=== PATIENT | male | born 1945 | race Asian ===

== ENCOUNTER 2018-12-26 16:39 | Emergency (ER) | payer MEDICARE ==
[~2018-12-26] VITALS: Ht 165.1 cm; Wt 62.0 kg
[2018-12-26] MEDS ORDERED: LOSA50TA64 PO (17:28)
[2018-12-26] MEDS ORDERED: TAMS-1 PO (17:28)
[2018-12-26] MEDS ORDERED: LOVA20 PO (17:28)
[2018-12-26] MEDS ORDERED: AMLO-512 PO (17:28)
[2018-12-26] MEDS ORDERED: HYDROCODONE/ACETAMINOPHEN 5-325 MG TABLET PO ONE (18:45)
[2018-12-26 21:00] VITALS: BP 127/89
[2018-12-26] MEDS ORDERED: ALBUTEROL SULFATE HFA 90 MCG/PUFF 8 GM INHALER IH ONE (21:00)
== END 2018-12-26 21:14 | disposition home or self-care (01) ==
LOC: EMS 16:46
DX: R07.89 Other chest pain (principal); R05 Cough; I10 Essential (primary) hypertension; F17.210 Nicotine dependence, cigarettes, uncomplicated; Z79.899 Other long term (current) drug therapy
CPT/HCPCS: 71046; 94640; 99283; G0238; J3535

== ENCOUNTER 2019-08-02 16:49 | Emergency (ER) | payer MEDICARE ==
[~2019-08-02] VITALS: Ht 165.1 cm; Wt 61.4 kg
[~2019-08-02 16:49] MED LIST: AMLO10TA7 PO; LOSA50TA64 PO; LOVA20 PO; TAMS-1 PO
[2019-08-02] MEDS: BACITRACIN 0.9 GM PACKET OINTMENT TP ONE (19:54)
[2019-08-02 20:43] VITALS: BP 131/73
== END 2019-08-02 21:16 | disposition home or self-care (01) ==
LOC: EMS 16:50
DX: S00.211A Abrasion of right eyelid and periocular area, initial encounter (principal); G89.29 Other chronic pain; M25.531 Pain in right wrist; E78.00 Pure hypercholesterolemia, unspecified; I10 Essential (primary) hypertension; Z87.891 Personal history of nicotine dependence; W01.0XXA Fall on same level from slipping, tripping and stumbling without subsequent striking against object, initial encounter; Y93.01 Activity, walking, marching and hiking; Y92.89 Other specified places as the place of occurrence of the external cause; Y99.8 Other external cause status

== ENCOUNTER 2019-08-07 05:05 | Inpatient (IN) | payer MEDICARE ==
[~2019-08-07] VITALS: Ht 157.5 cm; Wt 50.2 kg
[2019-08-07] MEDS ORDERED: 0.9% SODIUM CHLORIDE 10 ML SYRINGE IVP PRN (05:15)
[2019-08-07 05:39] LABS: BASOPHILS % (AUTO) 0.3 % (0.0-2.0); EOSINOPHILS % (AUTO) 0.2 % (1.0-6.0); HEMATOCRIT 22.6 % (41-53); HEMOGLOBIN 7.1 g/dL (13.5-17.5); LYMPHOCYTES # (AUTO) 0.6 K/uL (1.0-4.8); LYMPHOCYTES % (AUTO) 5.9 % (22.0-44.0); MEAN CORPUSCULAR HEMOGLOBIN 26.4 pg (26.0-34.0); MEAN CORPUSCULAR HGB CONC 31.4 G/dL (31.0-37.0); MEAN CORPUSCULAR VOLUME 84 fL (80-100); MONOCYTES # (AUTO) 0.6 K/uL (0.1-1.0); MONOCYTES % (AUTO) 5.9 % (2.0-9.0); PLATELET COUNT (AUTO) 347 K/uL (150-450); RED BLOOD CELL COUNT(AUTO) 2.69 MIL/uL (4.50-5.90); RED CELL DISTRIBUTION WIDTH 17.6 % (11.5-14.5)
[2019-08-07 05:41] LABS: NEUTROPHILS % (AUTO) 87.7 % (40.0-70.0)
[2019-08-07 05:49] LABS: ANION GAP 5 mmol/L (8-16); CARBON DIOXIDE 28 mmol/L (22-29); CHLORIDE 104 mmol/L (98-107); CREATININE 1.07 mg/dL (0.60-1.30); GLUCOSE,RANDOM 135 mg/dL (70-110); POTASSIUM 4.1 mmol/L (3.5-5.1); SODIUM SERUM 137 mmol/L (136-145); UREA NITROGEN, BLOOD 16 mg/dL (7-18)
[2019-08-07 05:50] LABS: GLOMERULAR FILTR. RATE CALC > 60 mL/min (>60)
[2019-08-07 05:52] LABS: PROTHROMBIN TIME 10.4 SEC (9.4-11.6)
[2019-08-07 05:55] LABS: ALANINE AMINOTRANSFERASE 14 U/L (12-78); ALBUMIN 2.6 g/dL (3.4-5.0); ALKALINE PHOSPHATASE 78 U/L (46-116); ASPARTATE AMINOTRANSFERASE 17 U/L (15-37); B-TYPE NATRIURETIC PEPTIDE 97 pg/mL (0-100); BILIRUBIN,TOTAL 0.5 mg/dL (0.1-1.0); TOTAL PROTEIN, SERUM 6.1 g/dL (6.4-8.2)
[2019-08-07 06:00] LABS: LACTIC ACID 1.5 mmol/L (0.4-2.0)
[2019-08-07 06:05] LABS: INFLUENZA TYPE A NEGATIVE FOR TYPE A (NEGATIVE); INFLUENZA TYPE B NEGATIVE FOR TYPE B (NEGATIVE)
[2019-08-07] MEDS ORDERED: SODIUM CHLORIDE 0.9% 1,000 ML IV ONE ×2 (06:15→08:15)
[2019-08-07 06:27] LABS: GLUCOSE,POINT OF CARE 133 MG/DL (70-110)
[2019-08-07] MEDS ORDERED: DEXAMETHASONE SOD PHOS 4 MG/ML 5 ML VIAL IVP ONE (06:45)
[2019-08-07] MEDS ORDERED: LevETIRAcetam 1,000 MG in DEXTROSE 5%-WATER 100 ML IV ONE (07:00)
[2019-08-07 07:41] LABS: BILIRUBIN,URINE NEGATIVE (NEGATIVE); GLUCOSE, URINE (UA) NEGATIVE (NEGATIVE); KETONES,URINE TRACE mg/dL (NEGATIVE); LEUKOCYTE ESTERASE ,URINE NEGATIVE (NEGATIVE); NITRATE,URINE NEGATIVE (NEGATIVE); OCCULT BLOOD,URINE NEGATIVE (NEGATIVE); PH,URINE 7.5 (5.0-8.0); PROTEIN,URINE NEGATIVE (NEGATIVE); UROBILINOGEN,URINE 0.2 mg/dL (<=1.0)
[2019-08-07 07:43] LABS: APPEARANCE,URINE CLEAR (CLEAR)
[2019-08-07] MEDS ORDERED: ACETAMINOPHEN 325 MG TABLET PO PRN (08:15)
[2019-08-07] MEDS ORDERED: MAGNESIUM HYDROXIDE SUSPENSION 30 ML UDCUP PO PRN (08:15)
[2019-08-07] MEDS ORDERED: ONDANSETRON HCL 4 MG/2 ML VIAL IVP PRN (08:15)
[2019-08-07] MEDS ORDERED: OxyCODONE HCL/ACETAMINOPHEN 5-325 MG TABLET PO PRN (08:15)
[2019-08-07] MEDS ORDERED: DEXTROSE 50%-WATER 25 GM/50 ML SYRINGE IVP PRN (08:15)
[2019-08-07] MEDS: FAMOTIDINE 20 MG TABLET PO SCH (09:00)
[2019-08-07] MEDS: DOCUSATE SODIUM 100 MG CAPSULE PO SCH ×2 (09:00→21:00)
[2019-08-07] MEDS ORDERED: SODIUM CHLORIDE 0.9% 100 ML ONE (10:09)
[2019-08-07] MEDS ORDERED: IOVERSOL 350 MG/ML 100 ML VIAL ONE (10:09)
[2019-08-07] MEDS: DEXAMETHASONE 4 MG TABLET PO SCH ×2 (11:02→15:58)
[2019-08-07 11:18] LABS: GLUCOSE,POINT OF CARE 121 MG/DL (70-110)
[2019-08-07 13:27] VITALS: BP 105/56
[2019-08-07 15:06] VITALS: BP 108/62
[2019-08-07] MEDS ORDERED: GADOBUTROL 1 MMOL/ML 10 ML VIAL IVP ONE (15:56)
[2019-08-07 20:10] VITALS: BP 116/67
[2019-08-07 20:11] LABS: GLUCOMETER DEV NAME(LOC) 5S.1; GLUCOSE,POINT OF CARE 149 MG/DL (70-110)
[2019-08-07] MEDS: LevETIRAcetam 500 MG in DEXTROSE 5%-WATER 100 ML IV SCH (21:41)
[2019-08-07] MEDS: DEXAMETHASONE SOD PHOS 4 MG/ML VIAL IVP SCH (21:41)
[2019-08-07 23:42] VITALS: BP 105/55
[2019-08-08 00:43] LABS: GLUCOMETER DEV NAME(LOC) 5S.1; GLUCOSE,POINT OF CARE 139 MG/DL (70-110)
[2019-08-08 05:35] VITALS: BP 111/65
[2019-08-08 07:45] VITALS: BP 113/55
[2019-08-08 07:45] LABS: BASOPHILS % (AUTO) 0.1 % (0.0-2.0); EOSINOPHILS % (AUTO) 0 % (1.0-6.0); HEMATOCRIT 22.5 % (41-53); HEMOGLOBIN 7.2 g/dL (13.5-17.5); LYMPHOCYTES # (AUTO) 0.8 K/uL (1.0-4.8); LYMPHOCYTES % (AUTO) 10.4 % (22.0-44.0); MEAN CORPUSCULAR HEMOGLOBIN 26.8 pg (26.0-34.0); MEAN CORPUSCULAR VOLUME 84 fL (80-100); MONOCYTES # (AUTO) 0.6 K/uL (0.1-1.0); MONOCYTES % (AUTO) 7.2 % (2.0-9.0); NEUTROPHILS # (AUTO) 6.6 K/uL (1.8-7.7); NEUTROPHILS % (AUTO) 82.3 % (40.0-70.0); PLATELET COUNT (AUTO) 381 K/uL (150-450); RED BLOOD CELL COUNT(AUTO) 2.68 MIL/uL (4.50-5.90); RED CELL DISTRIBUTION WIDTH 17.5 % (11.5-14.5)
[2019-08-08] MEDS: LevETIRAcetam 500 MG in DEXTROSE 5%-WATER 100 ML IV SCH ×2 (07:50→21:21)
[2019-08-08] MEDS: FAMOTIDINE 20 MG TABLET PO SCH (07:51)
[2019-08-08] MEDS: DEXAMETHASONE SOD PHOS 4 MG/ML VIAL IVP SCH ×2 (07:51→21:21)
[2019-08-08] MEDS: DOCUSATE SODIUM 100 MG CAPSULE PO SCH ×2 (07:51→21:00)
[2019-08-08] MEDS: MORPHINE SULFATE 2 MG/ML SYRINGE IVP PRN (07:55)
[2019-08-08 08:07] LABS: ANION GAP 9 mmol/L (8-16); CALCIUM, TOTAL 7.9 mg/dL (8.8-10.5); CARBON DIOXIDE 24 mmol/L (22-29); CHLORIDE 106 mmol/L (98-107); CREATININE 0.94 mg/dL (0.60-1.30); GLUCOSE,RANDOM 122 mg/dL (70-110); POTASSIUM 4.1 mmol/L (3.5-5.1); SODIUM SERUM 139 mmol/L (136-145); UREA NITROGEN, BLOOD 19 mg/dL (7-18)
[2019-08-08 08:08] LABS: GLOMERULAR FILTR. RATE CALC > 60 mL/min (>60)
[2019-08-08] MEDS: DEXTROSE 5%-0.45% SODIUM CHL 1,000 ML IV SCH (08:10)
[2019-08-08 11:07] VITALS: BP 110/61
[2019-08-08 12:05] LABS: GLUCOMETER DEV NAME(LOC) 5N.2; GLUCOSE,POINT OF CARE 129 MG/DL (70-110)
[2019-08-08 15:14] VITALS: BP 100/72
[2019-08-08] MEDS ORDERED: VANCOMYCIN HCL 1.5 GM in DEXTROSE 5%-WATER 250 ML IV ONE (16:00)
[2019-08-08 16:12] LABS: GLUCOMETER DEV NAME(LOC) 5S.1; GLUCOSE,POINT OF CARE 117 MG/DL (70-110)
[2019-08-08] MEDS: INSULIN LISPRO 100 UNITS/ML SQ PRN (17:32)
[2019-08-08 20:06] LABS: GLUCOMETER DEV NAME(LOC) 5N.2; GLUCOSE,POINT OF CARE 158 MG/DL (70-110)
[2019-08-08 20:30] VITALS: BP 129/64
[2019-08-08 22:52] LABS: GLUCOMETER DEV NAME(LOC) 5N.2; GLUCOSE,POINT OF CARE 144 MG/DL (70-110)
[2019-08-08 23:27] VITALS: BP 112/61
[2019-08-09] MEDS: MORPHINE SULFATE 2 MG/ML SYRINGE IVP PRN ×4 (00:18→20:45)
[2019-08-09 05:40] VITALS: BP 110/59
[2019-08-09] MEDS: VANCOMYCIN HCL 750 MG in DEXTROSE 5%-WATER 250 ML IV SCH ×2 (06:38→18:41)
[2019-08-09] MEDS: DEXTROSE 5%-0.45% SODIUM CHL 1,000 ML IV SCH (06:39)
[2019-08-09 07:00] LABS: BASOPHILS % (AUTO) 0.2 % (0.0-2.0); EOSINOPHILS % (AUTO) 0 % (1.0-6.0); HEMATOCRIT 23.1 % (41-53); HEMOGLOBIN 7.3 g/dL (13.5-17.5); LYMPHOCYTES # (AUTO) 0.9 K/uL (1.0-4.8); LYMPHOCYTES % (AUTO) 9.8 % (22.0-44.0); MEAN CORPUSCULAR HEMOGLOBIN 26.4 pg (26.0-34.0); MEAN CORPUSCULAR HGB CONC 31.7 G/dL (31.0-37.0); MEAN CORPUSCULAR VOLUME 83 fL (80-100); MONOCYTES # (AUTO) 0.8 K/uL (0.1-1.0); NEUTROPHILS # (AUTO) 7.3 K/uL (1.8-7.7); PLATELET COUNT (AUTO) 341 K/uL (150-450); RED BLOOD CELL COUNT(AUTO) 2.78 MIL/uL (4.50-5.90); RED CELL DISTRIBUTION WIDTH 16.7 % (11.5-14.5)
[2019-08-09 07:03] LABS: GLUCOMETER DEV NAME(LOC) 5N.2; GLUCOSE,POINT OF CARE 149 MG/DL (70-110)
[2019-08-09 07:14] LABS: ANION GAP 8 mmol/L (8-16); CALCIUM, TOTAL 7.7 mg/dL (8.8-10.5); CARBON DIOXIDE 25 mmol/L (22-29); CHLORIDE 100 mmol/L (98-107); CREATININE 0.83 mg/dL (0.60-1.30); GLUCOSE,RANDOM 144 mg/dL (70-110); POTASSIUM 3.7 mmol/L (3.5-5.1); SODIUM SERUM 133 mmol/L (136-145)
[2019-08-09 07:23] LABS: UREA NITROGEN, BLOOD 15 mg/dL (7-18)
[2019-08-09 07:24] LABS: GLOMERULAR FILTR. RATE CALC > 60 mL/min (>60)
[2019-08-09] MEDS: DEXAMETHASONE SOD PHOS 4 MG/ML VIAL IVP SCH ×2 (08:11→20:25)
[2019-08-09] MEDS: LevETIRAcetam 500 MG in DEXTROSE 5%-WATER 100 ML IV SCH ×2 (08:11→20:25)
[2019-08-09 08:53] VITALS: BP 137/70
[2019-08-09] MEDS: DOCUSATE SODIUM 100 MG CAPSULE PO SCH ×2 (09:00→20:26)
[2019-08-09] MEDS: FAMOTIDINE 20 MG TABLET PO SCH (09:00)
[2019-08-09 11:58] VITALS: BP 138/82
[2019-08-09 12:07] LABS: GLUCOMETER DEV NAME(LOC) 5S.2A; GLUCOSE,POINT OF CARE 134 MG/DL (70-110)
[2019-08-09 16:07] VITALS: BP 128/75
[2019-08-09] MEDS: PANTOPRAZOLE SODIUM 40 MG/VIAL IVP SCH (16:11)
[2019-08-09 20:04] VITALS: BP 134/77
[2019-08-10] VITALS (7 sets, daily range): BP systolic 122–136; BP diastolic 63–88
[2019-08-10 06:15] LABS: GLUCOMETER DEV NAME(LOC) 5S.2A; GLUCOSE,POINT OF CARE 131 MG/DL (70-110)
[2019-08-10 06:15] LABS: GLUCOMETER DEV NAME(LOC) 5S.2A; GLUCOSE,POINT OF CARE 170 MG/DL (70-110)
[2019-08-10 06:15] LABS: GLUCOMETER DEV NAME(LOC) 5S.2A; GLUCOSE,POINT OF CARE 129 MG/DL (70-110)
[2019-08-10] MEDS: VANCOMYCIN HCL 750 MG in DEXTROSE 5%-WATER 250 ML IV SCH (06:26)
[2019-08-10 06:57] LABS: ANION GAP 9 mmol/L (8-16); CALCIUM, TOTAL 7.7 mg/dL (8.8-10.5); CARBON DIOXIDE 24 mmol/L (22-29); CHLORIDE 93 mmol/L (98-107); CREATININE 0.85 mg/dL (0.60-1.30); GLUCOSE,RANDOM 137 mg/dL (70-110); POTASSIUM 3.6 mmol/L (3.5-5.1); SODIUM SERUM 126 mmol/L (136-145); UREA NITROGEN, BLOOD 12 mg/dL (7-18); VANCOMYCIN,RANDOM 6.6 mcg/mL (25.0-50.0)
[2019-08-10 06:59] LABS: GLOMERULAR FILTR. RATE CALC > 60 mL/min (>60)
[2019-08-10] MEDS: MORPHINE SULFATE 2 MG/ML SYRINGE IVP PRN ×2 (07:43→18:46)
[2019-08-10] MEDS: LevETIRAcetam 500 MG in DEXTROSE 5%-WATER 100 ML IV SCH ×2 (08:35→21:27)
[2019-08-10] MEDS: PANTOPRAZOLE SODIUM 40 MG/VIAL IVP SCH (08:36)
[2019-08-10] MEDS: DEXAMETHASONE SOD PHOS 4 MG/ML VIAL IVP SCH ×2 (08:36→21:26)
[2019-08-10] MEDS: FAMOTIDINE 20 MG TABLET PO SCH (08:45)
[2019-08-10] MEDS: DOCUSATE SODIUM 100 MG CAPSULE PO SCH ×2 (08:45→21:00)
[2019-08-10 14:12] LABS: GLUCOMETER DEV NAME(LOC) 5N.2; GLUCOSE,POINT OF CARE 137 MG/DL (70-110)
[2019-08-10] MEDS: DEXTROSE 5%-0.45% SODIUM CHL 1,000 ML IV SCH ×2 (14:41→21:26)
[2019-08-10] MEDS: VANCOMYCIN HCL 1.25 GM in DEXTROSE 5%-WATER 250 ML IV SCH (18:49)
[2019-08-10] MEDS: INSULIN LISPRO 100 UNITS/ML SQ PRN (22:22)
[2019-08-11 05:41] VITALS: BP 105/71
[2019-08-11] MEDS: VANCOMYCIN HCL 1.25 GM in DEXTROSE 5%-WATER 250 ML IV SCH ×2 (06:20→18:47)
[2019-08-11 07:03] LABS: GLUCOMETER DEV NAME(LOC) 5N.2; GLUCOSE,POINT OF CARE 170 MG/DL (70-110)
[2019-08-11 07:03] LABS: GLUCOMETER DEV NAME(LOC) 5N.2; GLUCOSE,POINT OF CARE 134 MG/DL (70-110)
[2019-08-11 07:34] LABS: ANION GAP 9 mmol/L (8-16); CALCIUM, TOTAL 7.7 mg/dL (8.8-10.5); CARBON DIOXIDE 25 mmol/L (22-29); CHLORIDE 89 mmol/L (98-107); CREATININE 0.87 mg/dL (0.60-1.30); GLUCOSE,RANDOM 110 mg/dL (70-110); POTASSIUM 3.7 mmol/L (3.5-5.1); UREA NITROGEN, BLOOD 14 mg/dL (7-18)
[2019-08-11 07:44] LABS: GLOMERULAR FILTR. RATE CALC > 60 mL/min (>60); SODIUM SERUM 123 mmol/L (136-145)
[2019-08-11 07:51] VITALS: BP 104/75
[2019-08-11] MEDS: DEXAMETHASONE SOD PHOS 4 MG/ML VIAL IVP SCH ×2 (08:50→20:55)
[2019-08-11] MEDS: PANTOPRAZOLE SODIUM 40 MG/VIAL IVP SCH (08:50)
[2019-08-11] MEDS: LevETIRAcetam 500 MG in DEXTROSE 5%-WATER 100 ML IV SCH ×2 (08:50→21:16)
[2019-08-11] MEDS: DOCUSATE SODIUM 100 MG CAPSULE PO SCH ×2 (09:00→21:00)
[2019-08-11] MEDS: FAMOTIDINE 20 MG TABLET PO SCH (09:00)
[2019-08-11 10:38] VITALS: BP 112/66
[2019-08-11 15:37] VITALS: BP 102/53
[2019-08-11 19:29] VITALS: BP 107/66
[2019-08-11 20:37] LABS: GLUCOMETER DEV NAME(LOC) 5S.2A; GLUCOSE,POINT OF CARE 124 MG/DL (70-110)
[2019-08-11 20:38] LABS: GLUCOMETER DEV NAME(LOC) 5S.2A; GLUCOSE,POINT OF CARE 112 MG/DL (70-110)
[2019-08-11 20:38] LABS: GLUCOMETER DEV NAME(LOC) 5S.2A; GLUCOSE,POINT OF CARE 120 MG/DL (70-110)
[2019-08-11] MEDS: MORPHINE SULFATE 2 MG/ML SYRINGE IVP PRN (21:41)
[2019-08-11 23:52] VITALS: BP 107/68
[2019-08-12 05:15] VITALS: BP 100/60
[2019-08-12 06:38] LABS: ANION GAP 6 mmol/L (8-16); CALCIUM, TOTAL 8.3 mg/dL (8.8-10.5); CARBON DIOXIDE 28 mmol/L (22-29); CHLORIDE 97 mmol/L (98-107); CREATININE 0.98 mg/dL (0.60-1.30); GLUCOSE,RANDOM 121 mg/dL (70-110); POTASSIUM 3.9 mmol/L (3.5-5.1); SODIUM SERUM 131 mmol/L (136-145); UREA NITROGEN, BLOOD 20 mg/dL (7-18)
[2019-08-12 06:41] LABS: GLOMERULAR FILTR. RATE CALC > 60 mL/min (>60)
[2019-08-12 07:19] VITALS: BP 102/69
[2019-08-12] MEDS: VANCOMYCIN HCL 1.25 GM in DEXTROSE 5%-WATER 250 ML IV SCH ×2 (07:22→19:58)
[2019-08-12] MEDS: DOCUSATE SODIUM 100 MG CAPSULE PO SCH ×2 (09:00→21:00)
[2019-08-12] MEDS: FAMOTIDINE 20 MG TABLET PO SCH (09:00)
[2019-08-12] MEDS ORDERED: SODIUM CHLORIDE 0.9% 250 ML IV ONE (09:46)
[2019-08-12] MEDS: PANTOPRAZOLE SODIUM 40 MG/VIAL IVP SCH (09:48)
[2019-08-12] MEDS: LevETIRAcetam 500 MG in DEXTROSE 5%-WATER 100 ML IV SCH ×2 (09:48→21:24)
[2019-08-12] MEDS: DEXAMETHASONE SOD PHOS 4 MG/ML VIAL IVP SCH ×2 (09:49→21:24)
[2019-08-12 11:20] VITALS: BP 107/50
[2019-08-12 11:35] LABS: GLUCOMETER DEV NAME(LOC) 5S.2A; GLUCOSE,POINT OF CARE 111 MG/DL (70-110)
[2019-08-12 11:58] LABS: GLUCOMETER DEV NAME(LOC) 5S.2A; GLUCOSE,POINT OF CARE 113 MG/DL (70-110)
[2019-08-12 16:03] VITALS: BP 99/62
[2019-08-12] MEDS ORDERED: DEXTROSE 5%-0.9% SODIUM CHL 1,000 ML IV SCH (18:30)
[2019-08-12 19:22] LABS: GLUCOMETER DEV NAME(LOC) 5S.2A; GLUCOSE,POINT OF CARE 122 MG/DL (70-110)
[2019-08-12 19:35] VITALS: BP 106/57
[2019-08-12] MEDS: MORPHINE SULFATE 2 MG/ML SYRINGE IVP PRN (19:58)
[2019-08-12 22:50] LABS: GLUCOMETER DEV NAME(LOC) 5N.2; GLUCOSE,POINT OF CARE 158 MG/DL (70-110)
[2019-08-12 23:17] VITALS: BP 103/64
[2019-08-13 03:57] VITALS: BP 105/62
[2019-08-13] MEDS: VANCOMYCIN HCL 1.25 GM in DEXTROSE 5%-WATER 250 ML IV SCH (06:29)
[2019-08-13 07:08] LABS: GLUCOMETER DEV NAME(LOC) 5N.2; GLUCOSE,POINT OF CARE 138 MG/DL (70-110)
[2019-08-13 07:21] LABS: ANION GAP 7 mmol/L (8-16); CARBON DIOXIDE 27 mmol/L (22-29); CHLORIDE 98 mmol/L (98-107); CREATININE 0.89 mg/dL (0.60-1.30); GLUCOSE,RANDOM 129 mg/dL (70-110); POTASSIUM 4.2 mmol/L (3.5-5.1); SODIUM SERUM 132 mmol/L (136-145); UREA NITROGEN, BLOOD 20 mg/dL (7-18); VANCOMYCIN,RANDOM 18.8 mcg/mL (25.0-50.0)
[2019-08-13 07:25] LABS: GLOMERULAR FILTR. RATE CALC > 60 mL/min (>60)
[2019-08-13 08:17] VITALS: BP 99/59
[2019-08-13] MEDS: PANTOPRAZOLE SODIUM 40 MG/VIAL IVP SCH (08:58)
[2019-08-13] MEDS: FAMOTIDINE 20 MG TABLET PO SCH (08:59)
[2019-08-13] MEDS: DEXAMETHASONE SOD PHOS 4 MG/ML VIAL IVP SCH (08:59)
[2019-08-13] MEDS: LevETIRAcetam 500 MG in DEXTROSE 5%-WATER 100 ML IV SCH (09:00)
[2019-08-13] MEDS: DOCUSATE SODIUM 100 MG CAPSULE PO SCH (10:41)
[2019-08-13 11:13] VITALS: BP 100/64
[2019-08-13] MEDS ORDERED: LEVE500T53 PO (12:02)
[2019-08-13] MEDS ORDERED: VANCOMYCIN HCL 1 GM/D5% WATER 200 ML IV SCH (19:00)
== END 2019-08-13 13:20 | disposition home or self-care (01) | DRG 54 ==
LOC: EMS 05:14 → 5S 12:40
PROVIDERS: ADMIT Internal Medicine; ATTEND Internal Medicine
DX: D49.6 Neoplasm of unspecified behavior of brain (principal); E43 Unspecified severe protein-calorie malnutrition; G93.6 Cerebral edema; G93.40 Encephalopathy, unspecified; E87.1 Hypo-osmolality and hyponatremia; C34.90 Malignant neoplasm of unspecified part of unspecified bronchus or lung; D63.8 Anemia in other chronic diseases classified elsewhere; I10 Essential (primary) hypertension; F03.90 Unspecified dementia, unspecified severity, without behavioral disturbance, psychotic disturbance, mood disturbance, and anxiety; E78.00 Pure hypercholesterolemia, unspecified; F17.210 Nicotine dependence, cigarettes, uncomplicated; Z68.20 Body mass index [BMI] 20.0-20.9, adult
CPT/HCPCS: 70450; 70553; 71260; 72193; 74160; 83605; 84145; 86850; 86900; 86901; 87040; 87205; 87804; 92610; 93005; A9585; C9113; J0712; J1100; J2270; J3370; J7030; J7042; J7050; J7060; J8540